=== PATIENT | female | born 1980 | race Caucasian/White ===

== ENCOUNTER → 2021-05-19 15:28 | Outpatient (CLI) | payer OTHER, MEDICAID, SELFPAY ==
[2021-05-19 16:14] LABS: COVID19 -Nasal RAPID Negative (Negative)
== END ==
PROVIDERS: Referring Provider Specialist; Visit Provider Specialist
DX: Z01.812 Encounter for preprocedural laboratory examination (principal); Z20.822 Contact with and (suspected) exposure to COVID-19
CPT/HCPCS: 87635

== ENCOUNTER 2021-05-20 10:15 | Day surgery (SDC) | payer OTHER, MEDICAID, SELFPAY ==
[2021-05-20] VITALS (8 sets, daily range): BP systolic 118–138; BP diastolic 66–83; PULSE 70–84; RESP 12–20; TEMP 36.1–36.8; O2SAT 98–100; BMI 32.5
--- NOTE | 2021-05-20 | PATH_ITS ---
[facility] Accession Number: [id number] . 01 Material submitted: . endometrium - ENDOMETRIAL BIOPSY . 01 Diagnosis: Endometrium, Biopsy: Proliferative endometrium. Negative for neoplasia. [facility] 05/23/2021 1722 Local . 01 Electronically signed: . Kendra Noe MD, Pathologist NPI- [id number] . 01 Gross description: . ENDOMETRIAL BIOPSY: Received in formalin are minute fragments of mucoid and hemorrhagic material measuring 3.5 x 3.0 x 0.7 cm in aggregate. Submitted in toto in 2 cassettes. /TIANA 05/21/2021 0459 Local . 01 Pathologist provided ICD-10: N92.0 . 01 CPT . 735444 Performed at: 01 [facility] [address] [place] [address], [place], [place] [id number] MD Jack Shipley MD Phone: [phone]
[2021-05-20] MEDS: LACTATED RINGERS 1,000 ML 42 ML IV (10:29)
--- NOTE | 2021-05-20 11:18 | PM.PREOP ---
Pre-operative Note COVID-19 COVID-19 status: Negative Interval Note History & Physical reviewed/Exam performed by Physician: Yes Changes to H&P: No
--- NOTE | 2021-05-20 11:58 | SUR.OPER ---
Lithotomy on padded OR bed, head on pillow, arms secured on padded arm boards at <90 degrees abduction. Legs secured in padded yellow fins stirrups.
--- NOTE | 2021-05-20 12:40 | P.OP_ITS ---
Operative Date/Time/Diagnoses Date of procedure: 05/20/21 Time of procedure: 12:40 Pre-op diagnosis: Menorrhagia with submucous fibroid Post-op diagnosis: same Procedure & Clinicians Procedure: Hysteroscopy with endometrial curettage, NovaSure ablation, and cauterization areas of lining not treated by the no sure with ball cautery Same procedure as scheduled: Yes Indications: Menorrhagia with submucous fibroid on ultrasound Surgeon: Lela Robert Click Yes if Unassisted: Yes Anesthesia Type: General Operative Notes Findings: Slightly enlarged uterus with posterior wall submucous fibroid dist orting the lining. Closure Type: not applicable Specimen(s): other (Endometrial curettings) Estimated Blood Loss (mL): 50 Blood products transfused: none Procedure in detail: Patient was brought to the operating room where she underwent general anesthesia and was placed in the [facility]. Pulsatile stockings were in place and functional. Antibiotics were not indicated. Warming was with blankets. A check system was reviewed with the staff in the room. A single-tooth tenaculum was placed on the anterior lip of the cervix. The cervix was dilated to a # 6 Hegar dilator. The hysteroscope was placed through the cervix into the uterus with saline solution. Curettage was performed. The tissue was sent to pathology. The endometrial lining was thin. The cavity was distorted by the submucous fibroid. The NovaSure sound was used to determine the length of the uterus which was 6 cm. This was set on the NovaSure device. The device was placed in the uterus and the width determined to be 4.2 cm. The length and width were entered into the NovaSure machine. The plunger was pushed to the cervix to effect a good vacuum seal. This was documented by the machine. Cauterization was done with a total power 139 but the machine stopped after 25 seconds. The NovaSure array was pulled back into the device and then the device removed. Replacement of the hysteroscope showed good charring on parts of the uterus but there were areas that were untreated. The operative hysteroscope was placed with sorbitol running. The ball cautery set at 80 w was used to treat areas that were not treated by the NovaSure. I's and O's were approximately equal at 4000 cc. Patient tolerated the procedure well. Counts of instruments and sponges were correct. Patient went to recovery room in good condition. Complications: none Post-operative Condition: stable Disposition: same day surgery Plan for aftercare: Home when awake and stable
[2021-05-20] MEDS: ACETAMINOPHEN 325 MG TABLET 975 MG PO (12:56)
--- NOTE | 2021-05-20 13:22 | SUR.PHASEII ---
c/o minimal cramping now and vickey-pad is dry
== END 2021-05-20 13:20 | disposition home or self-care (01) ==
PROVIDERS: PCP Registered Nurse; Referring Provider Specialist; Visit Provider Specialist
PROC: 0U5B8ZZ Destruction of Endometrium, Via Natural or Artificial Opening Endoscopic (ICD-10-PCS; CPT 58563; principal; 2021-05-20 11:30)
DX: N92.0 Excessive and frequent menstruation with regular cycle (principal); D25.0 Submucous leiomyoma of uterus
CPT/HCPCS: 58563; 81025; J1100; J1885; J2250; J2405; J2704; J3010